=== PATIENT | male | born 1995 | race African-American/Black ===

== ENCOUNTER 2020-03-23 07:43 | Emergency (ER) | payer SELFPAY ==
[2020-03-23] MEDS ORDERED: LIDOCAINE 2% MPF 5 ML VIAL ONE (08:14)
[2020-03-23] MEDS ORDERED: BUPIVACAINE 0.5% PF 10 ML VIAL ONE (08:14)
[2020-03-23 08:48] VITALS: BP 102/85; TEMP 97.8; O2SAT 100
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
== END 2020-03-23 08:42 | disposition home or self-care (01) ==
LOC: ER 07:43
PROC: 0JQG0ZZ Repair Right Lower Arm Subcutaneous Tissue and Fascia, Open Approach (ICD-10-PCS; principal; 2020-03-23)
PROC: 0JQK0ZZ Repair Left Hand Subcutaneous Tissue and Fascia, Open Approach (ICD-10-PCS; 2020-03-23)
DX: S61.511A Laceration without foreign body of right wrist, initial encounter (principal); Y04.8XXA Assault by other bodily force, initial encounter; Y93.9 Activity, unspecified; Y92.89 Other specified places as the place of occurrence of the external cause; Z88.0 Allergy status to penicillin
CPT/HCPCS: 99283

== ENCOUNTER 2020-11-24 16:06 | Emergency (ER) | payer SELFPAY ==
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
[2020-11-24] MEDS ORDERED: LIDOCAINE 1% MPF 5 ML VIAL ONE (16:46)
[2020-11-24] MEDS ORDERED: TETANUS & DIPHTHERIA TOX,ADULT 0.5 ML VIAL ONE (16:46)
[2020-11-24] MEDS ORDERED: DERMABOND SKIN ADHESIVE TOP ONE (16:57)
== END 2020-11-24 17:00 | disposition home or self-care (01) ==
LOC: ER 16:06
PROC: 0HQFXZZ Repair Right Hand Skin, External Approach (ICD-10-PCS; principal; 2020-11-24)
DX: S61.011A Laceration without foreign body of right thumb without damage to nail, initial encounter (principal); W26.8XXA Contact with other sharp object(s), not elsewhere classified, initial encounter; Z23 Encounter for immunization; F17.210 Nicotine dependence, cigarettes, uncomplicated
CPT/HCPCS: 90471; 90714; 99283